=== PATIENT | male | born 1995 | race Two or more races ===

== ENCOUNTER 2017-12-05 22:35 | Emergency (ER) | payer SELFPAY | END 2017-12-05 23:38 | disposition home or self-care (01) | LOC: ER 22:35 | DX: M79.642 Pain in left hand (principal); M25.532 Pain in left wrist; F12.10 Cannabis abuse, uncomplicated; F15.10 Other stimulant abuse, uncomplicated | CPT/HCPCS: 73110; 73130; 99284 ==